=== PATIENT | female | born 1945 | race Caucasian/White ===

== ENCOUNTER 2018-07-19 10:20 | Outpatient (REF) | payer MEDICARE, MEDICAID, SELFPAY ==
--- NOTE | 2018-07-19 08:50 | SKI_PTH ---
PATIENT: EMILY YANG LOC: [facility] U#:[id number] AGE/SX: 73/F ROOM: RE07/19/[address]: Fernando Hanley DO : 1945 BED: DIS: 07/19/2018 SPEC #: [id number] RECD: 07/19/18 17:57 STATUS: ALEJO REQ #: [id number] SOUTH: 07/19/18 08:[address]: Fernando Hanley DEPT: Surgical Specimen RECD BY: Jennifer Reina ENTERED: 07/19/18 17:58 SP TYPE: TORIE HILTON DR: Noah Adkins Tissues: 1 - SKIN BIOPSY(SHAVE/PUNCH) Procedures: SKIN LEVEL 4 Comments: [id number]
== END 2018-07-19 10:40 ==
LOC: LBN 10:20
PROVIDERS: PCP Family Medicine; Visit Provider Otolaryngology Otolaryngology/Facial Plastic Surgery
DX: C44.219 Basal cell carcinoma of skin of left ear and external auricular canal (principal)
CPT/HCPCS: 88305